=== PATIENT | male | born 1985 | race Asian ===

== ENCOUNTER 2021-04-24 13:33 | Emergency (ER) | payer OTHER, SELFPAY ==
[2021-04-24 13:40] VITALS: BP 157/101; PULSE 67; RESP 18; TEMP 36.6; O2SAT 99; BMI 26.6
--- NOTE | 2021-04-24 13:45 | DI.RAD.S_ITS ---
PROCEDURE: XR KNEE LT 3V INDICATIONS: knee pain and swelling TECHNIQUE: 3 views of the knee were acquired. COMPARISON: None. FINDINGS: Bones: No fractures or dislocations. No suspicious bony lesions. The knee joint spaces are well preserved. Soft tissues: There is a small joint effusion. No suspicious soft tissue calcifications. IMPRESSION: Small joint effusion, without a significant bony abnormality seen. If it would be helpful for clinical management decision making, please consider a dedicated, scheduled knee MRI for further evaluation (assuming that there is no contraindication). Dictated by: Alberto Mitchell M.D. on 04/24/2021 at 13:10 Approved by: Alberto Mitchell M.D. on 04/24/2021 at 13:12
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
[2021-04-24 15:49] VITALS: BP 160/108; PULSE 71; RESP 16; O2SAT 98
== END 2021-04-24 15:51 | disposition home or self-care (01) ==
PROVIDERS: Emergency Provider Emergency Medicine; PCP Family Medicine
DX: S89.92XA Unspecified injury of left lower leg, initial encounter (principal); V19.9XXA Pedal cyclist (driver) (passenger) injured in unspecified traffic accident, initial encounter
CPT/HCPCS: 73562; 99281; 99283